=== PATIENT | male | born 1985 | race Caucasian/White ===

== ENCOUNTER 2019-04-01 04:02 | Emergency (ER) | payer MEDICAID ==
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
== END 2019-04-01 04:18 | disposition left against medical advice (07) ==
LOC: ER 04:08
DX: Z53.21 Procedure and treatment not carried out due to patient leaving prior to being seen by health care provider (principal)

== ENCOUNTER 2019-10-25 18:42 | Inpatient (IN) | payer MEDICAID ==
[~2019-10-25] VITALS: Ht 182.9 cm; Wt 91.2 kg
[2019-10-25] MEDS ORDERED: ALBUTEROL SULFATE 8 GM HFA.AER.AD IH STA (18:53)
[2019-10-25] MEDS ORDERED: methylPREDNISolone SOD SUCC 125 MG/2 ML VIAL IV ONE (19:00)
[2019-10-25] MEDS ORDERED: MAGNESIUM SULFATE/D5W 200 ML ONE (19:12)
[2019-10-25] MEDS ORDERED: methylPREDNISolone SOD SUCC 125 MG/2 ML VIAL ONE (19:12)
[2019-10-25] MEDS: MAGNESIUM SULFATE/D5W 100 ML IV SCH ×2 (19:30→20:23)
[2019-10-25 19:43] LABS: CREATININE 1.1 mg/dL (0.6-1.3); POTASSIUM 4.3 mmol/L (3.5-5.1)
[2019-10-25 19:55] LABS: BILIRUBIN,TOTAL 0.4 mg/dL (0.2-1.0); TOTAL PROTEIN, SERUM 8.6 g/dL (6.4-8.2)
[2019-10-25 20:02] LABS: BASOPHILS # (AUTO) 0.1 K/uL (0.0-8.0); BASOPHILS % (AUTO) 0.4 % (0.0-2.0); EOSINOPHILS # (AUTO) 0.9 K/uL (0.0-0.7); EOSINOPHILS % (AUTO) 8.4 % (0.0-7.0); HEMATOCRIT 40.3 % (36.7-47.1); HEMOGLOBIN 13.2 g/dL (12.5-16.3); LYMPHOCYTES # (AUTO) 2.9 K/uL (20.0-40.0); LYMPHOCYTES % (AUTO) 25.5 % (20.5-51.5); MEAN CORPUSCULAR HEMOGLOBIN 27.6 uug (23.8-33.4); MEAN CORPUSCULAR HGB CONC 33 g/dL (32.5-36.3); MEAN CORPUSCULAR VOLUME 84.6 fL (73.0-96.2); MONOCYTES # (AUTO) 0.9 K/uL (2.0-10.0); MONOCYTES % (AUTO) 8.3 % (0.0-11.0); NEUTROPHILS # (AUTO) 6.5 K/uL (1.8-8.9); NEUTROPHILS % (AUTO) 57.4 % (38.5-71.5); PLATELET COUNT (AUTO) 271 K/uL (152-348); RED BLOOD CELL COUNT(AUTO) 4.77 MIL/uL (4.06-5.63); WHITE BLOOD COUNT (AUTO) 11.3 K/uL (3.6-10.2)
[2019-10-25] MEDS ORDERED: levoFLOXacin 750 MG/D5W 150 ML PIGGYBACK IV ONE (20:45)
--- NOTE | 2019-10-25 20:49 | NUR ---
Paged Epic panel. Waiting for Dr Howe to call back Epic panel [address].
--- NOTE | 2019-10-25 20:53 | NUR ---
DR BARROS CALLED BACK SPOKE WITH ER DR SELLERS ACCEPTED PATIENT TELE.
--- NOTE | 2019-10-25 20:53 | NUR ---
Dr España speaking with Dr Howe.
[2019-10-25] MEDS ORDERED: levoFLOXacin 750MG/D5W 150 ML IV ONE (20:57)
[2019-10-25] MEDS ORDERED: ACETAMINOPHEN 325 MG TABLET PO PRN (21:00)
[2019-10-25] MEDS ORDERED: ALBUTEROL SULFATE 8 GM HFA.AER.AD IH PRN (21:00)
[2019-10-25] MEDS ORDERED: ONDANSETRON 4 MG/2 ML VIAL IV PRN (21:00)
[2019-10-25] MEDS ORDERED: hydrALAZINE HCL 25 MG TABLET PO PRN (21:15)
[2019-10-25 22:00] VITALS: BP 131/84
--- NOTE | 2019-10-25 22:20 | NUR ---
Pt. admitted to TELE, under care of Dr. BARROS Belongs List completed
[2019-10-25] MEDS: methylPREDNISolone SOD SUCC 40 MG/ML VIAL IV SCH (22:38)
[2019-10-25] MEDS: HYDROCODONE/APAP 5-325MG TABLET PO PRN (22:53)
[2019-10-25] MEDS: IV 1/2NS 1000 ML 1,000 ML IV PRN (22:54)
--- NOTE | 2019-10-25 23:17 | NUR ---
Received patient from ER. A/Ox4 Dx: PNA. On droplet and contact precaution for r/o COVID. Sinus Rhythm in the 90s on the monitor. Complains of some chest tightness/SOB. 92% on room air, placed patient on 2L NC saturating at 96%, stated feels better and requested pain medication. Administered PRN [place]. Started IVF on the left AC and administered Solu-medrol. Patient oriented to unit and room. Updated friend who is patients emergency contact in front of patient and answered any questions they had. Safety measures initiated. Bed is low and locked, call light within reach. Will continue to monitor.
[2019-10-26] VITALS: BP 130/74
[2019-10-26 04:00] VITALS: BP 125/83
[2019-10-26 06:18] LABS: BASOPHILS % (AUTO) 0.1 % (0.0-2.0); HEMATOCRIT 41.7 % (36.7-47.1); HEMOGLOBIN 13.6 g/dL (12.5-16.3); LYMPHOCYTES # (AUTO) 0.8 K/uL (20.0-40.0); LYMPHOCYTES % (AUTO) 12.7 % (20.5-51.5); MEAN CORPUSCULAR HEMOGLOBIN 27.8 uug (23.8-33.4); MEAN CORPUSCULAR HGB CONC 33 g/dL (32.5-36.3); MEAN CORPUSCULAR VOLUME 85.2 fL (73.0-96.2); MONOCYTES % (AUTO) 0.4 % (0.0-11.0); NEUTROPHILS # (AUTO) 5.3 K/uL (1.8-8.9); NEUTROPHILS % (AUTO) 86.8 % (38.5-71.5); PLATELET COUNT (AUTO) 295 K/uL (152-348); WHITE BLOOD COUNT (AUTO) 6.1 K/uL (3.6-10.2)
[2019-10-26] MEDS: methylPREDNISolone SOD SUCC 40 MG/ML VIAL IV SCH ×2 (06:25→13:34)
[2019-10-26 06:40] LABS: BILIRUBIN,TOTAL 0.4 mg/dL (0.2-1.0); MAGNESIUM 1.9 mg/dL (1.8-2.4); PHOSPHOROUS 4.6 mg/dL (2.5-4.9); POTASSIUM 4.9 mmol/L (3.5-5.1); TOTAL PROTEIN, SERUM 8.7 g/dL (6.4-8.2)
--- NOTE | 2019-10-26 06:43 | NUR ---
Patient slept well, stated breathing feels better. No distress noted. IVF running on the left AC, no s/s of infection or infiltration. Medication given as ordered. SR on the monitor. will endorse to next shift.
[2019-10-26] MEDS ORDERED: PANTOPRAZOLE SODIUM 40 MG TABLET.DR PO SCH (07:00)
[2019-10-26] MEDS: HYDROCODONE/APAP 5-325MG TABLET PO PRN ×2 (11:01→15:22)
[2019-10-26 11:46] VITALS: BP 137/80
[2019-10-26] MEDS: IV 1/2NS 1000 ML 1,000 ML IV PRN (13:44)
[2019-10-26 16:00] VITALS: BP 140/68
--- NOTE | 2019-10-26 18:22 | NUR ---
EOS note: No significant acute changes during this shift. Pt. remain A/Ox4, verbally responsive and able to make his needs know. All due medications administered as ordered and tolerated well. In no distress, denies SOB or CP. Noted pt. with intermittent non-productive cough. Pt. c/o low back pain, NORCO given 2x and effective. Skin care rendered. PIV patent and intact. Safety measures in place. Call light and all frequently used items within pt. reach. Will endorse to oncoming shift accordingly.
[2019-10-26 20:00] VITALS: BP 112/64
[2019-10-26] MEDS ORDERED: methylPREDNISolone SOD SUCC 40 MG/ML VIAL IV SCH (21:00)
[2019-10-26] MEDS ORDERED: MORPHINE SULFATE 2 MG/1 ML DISP.SYRIN IV PRN (21:15)
[2019-10-26] MEDS ORDERED: LORAZEPAM 2 MG/1 ML VIAL IV PRN (21:15)
[2019-10-27] VITALS: BP 123/65
[2019-10-27] MEDS: HYDROCODONE/APAP 5-325MG TABLET PO PRN (00:38)
--- NOTE | 2019-10-27 00:42 | NUR ---
Patient asked this nurse how long it takes for the morphine to work and this nurse explained that it takes approximately 20 -30 minutes for IV morphine to assist with pain relief. Patient told this nurse that it isn't working because he is still awake and wants another 'shot of morphine.' This nurse explained to patient that it is too soon for next morphine but he does have norco prescribed by his MD. Patient stated to this nurse that norco won't put him to sleep and asked if he could go to his car to get something that will help him sleep. This nurse advised patient that he cannot leave to get something that is not prescribed by his doctor. Patient then told this nurse to remove his IV because he wants to leave. This nurse explained that he would have to fill out AMA paperwork but he would need someone to come and pick him up. Patient then told this nurse he would take the norco but it wouldn't help him sleep. This nurse provided the patient with prescribed norco and will continue to monitor and assess.
--- NOTE | 2019-10-27 01:45 | NUR ---
Patient requesting to leave because he is not getting pain relief from the prescribed medications. Patient is alert and oriented x4 and signed paperwork to leave against medical advice. All belongings checked against belongings list and are accounted for. Patient walked to security desk by this nurse and left via front door.
[2019-10-27] MEDS ORDERED: PANTOPRAZOLE SODIUM 40 MG TABLET.DR PO SCH (09:00)
== END 2019-10-27 01:54 | disposition left against medical advice (07) | DRG 139 ==
LOC: ER 18:44 → TELE3 21:56
PROVIDERS: ADMIT Internal Medicine; ATTEND Internal Medicine
DX: J15.9 Unspecified bacterial pneumonia (principal); J96.01 Acute respiratory failure with hypoxia; F17.210 Nicotine dependence, cigarettes, uncomplicated; J20.9 Acute bronchitis, unspecified; Z59.0 Homelessness; F11.23 Opioid dependence with withdrawal; F15.10 Other stimulant abuse, uncomplicated
CPT/HCPCS: 36415; 70030-TC; 71045; 83605; 83615; 83735; 84100; 85025; 85730; 87040; 93005; G0378; J1956; J2270; J2920; J2930; J3475; J3490; J3535; U0003-CS

== ENCOUNTER 2019-10-30 21:43 | Emergency (ER) | payer SELFPAY | END 2019-10-30 21:51 | disposition left against medical advice (07) | LOC: ER 21:45 | DX: Z75.3 Unavailability and inaccessibility of health-care facilities (principal) ==

== ENCOUNTER 2019-11-20 12:18 | Emergency (ER) | payer MEDICAID ==
[~2019-11-20] VITALS: Ht 182.9 cm; Wt 90.7 kg
--- NOTE | 2019-11-20 12:43 | NUR ---
PT IS IN ROOM #1B. DR ECHOLS EVALUATED THE PT.
[2019-11-20] MEDS ORDERED: ALBUTEROL SULFATE 2.5 MG/3 ML NEBU NEB ONE ×2 (12:45→13:00)
[2019-11-20] MEDS ORDERED: ALBUTEROL SULFATE 2.5 MG/3 ML NEBU ONE ×2 (12:58→13:09)
--- NOTE | 2019-11-20 14:05 | NUR ---
PT WAS D/C'd TO HOME. D/C INSTRUCTIONS GIVEN TO THE PT BY DR ECHOLS.
[2019-11-20 14:06] VITALS: BP 132/74
== END 2019-11-20 14:11 | disposition home or self-care (01) ==
LOC: ER 12:20
DX: J44.1 Chronic obstructive pulmonary disease with (acute) exacerbation (principal); Z59.0 Homelessness; Z87.01 Personal history of pneumonia (recurrent); R05 Cough; Z20.828 Contact with and (suspected) exposure to other viral communicable diseases
CPT/HCPCS: 71045; 94644; 99285; U0003; A4663

== ENCOUNTER 2019-12-02 03:52 | Emergency (ER) | payer MEDICAID, OTHER ==
[~2019-12-02] VITALS: Ht 188 cm; Wt 90.7 kg
--- NOTE | 2019-12-02 03:58 | NUR ---
Dr. sEpaña at bedside for MSE.
--- NOTE | 2019-12-02 04:00 | NUR ---
Patient arrive via [facility] [id number] with [employer], in custody. Pt has c/o anxiety .
[2019-12-02] MEDS ORDERED: LORAZEPAM 1 MG TABLET ONE (04:07)
[2019-12-02] MEDS ORDERED: LORAZEPAM 0.5 MG TABLET PO ONE (04:15)
--- NOTE | 2019-12-02 04:22 | NUR ---
Patient discharged to [facility], Officer # [id number]. Written and verbal after care instructions given. Patient and [employer] verbalizes understanding of instructions.
[2019-12-02 04:24] VITALS: BP 130/68
== END 2019-12-02 04:22 ==
LOC: ER 03:57
DX: F45.8 Other somatoform disorders (principal); Z59.0 Homelessness; F41.9 Anxiety disorder, unspecified; Z87.01 Personal history of pneumonia (recurrent); Z87.898 Personal history of other specified conditions; F17.200 Nicotine dependence, unspecified, uncomplicated; F15.10 Other stimulant abuse, uncomplicated
CPT/HCPCS: 71045; A4663

== ENCOUNTER 2020-01-03 23:19 | Emergency (ER) | payer MEDICAID, OTHER ==
[~2020-01-03] VITALS: Ht 182.9 cm; Wt 90.7 kg
[2020-01-03] MEDS: ALBUTEROL SULFATE 2.5 MG/3 ML NEBU NEB ONE (23:50)
[2020-01-03] MEDS: IPRATROPIUM BROMIDE 0.5 MG/2.5 ML NEBU NEB ONE (23:50)
[2020-01-03] MEDS: predniSONE 20 MG TABLET PO ONE (23:55)
[2020-01-03] MEDS ORDERED: predniSONE 20 MG TABLET ONE (23:55)
[2020-01-04] MEDS ORDERED: ALBUTEROL SULFATE 2.5 MG/3 ML NEBU ONE
[2020-01-04] MEDS ORDERED: IPRATROPIUM BROMIDE 0.5 MG/2.5 ML NEBU ONE (00:01)
[2020-01-04 00:32] VITALS: BP 128/74
--- NOTE | 2020-01-04 00:32 | NUR ---
Patient given written and verbal discharge instructions. Patient verbalizes understanding of instructions. Patient is ambulatory with steady gait. Refuses offer of intermediate placement. Patient given list of available shelters in surrounding area.
== END 2020-01-04 00:33 | disposition home or self-care (01) ==
LOC: ER 23:28
DX: J45.901 Unspecified asthma with (acute) exacerbation (principal); Z59.0 Homelessness; F17.200 Nicotine dependence, unspecified, uncomplicated; F11.10 Opioid abuse, uncomplicated; F15.10 Other stimulant abuse, uncomplicated; Z87.01 Personal history of pneumonia (recurrent)
CPT/HCPCS: 94640; 99283; J7512; A4663; J3590

== ENCOUNTER 2020-01-20 06:34 | Emergency (ER) | payer MEDICAID ==
[~2020-01-20] VITALS: Ht 182.9 cm; Wt 90.7 kg
[2020-01-20] MEDS ORDERED: predniSONE 10 MG TABLET ONE (06:52)
[2020-01-20] MEDS ORDERED: predniSONE 50 MG TABLET ONE (06:52)
[2020-01-20] MEDS ORDERED: predniSONE 20 MG TABLET PO ONE (07:00)
[2020-01-20] MEDS ORDERED: IPRATROPIUM BROMIDE 0.5 MG/2.5 ML NEBU NEB ONE (07:00)
[2020-01-20] MEDS ORDERED: ALBUTEROL SULFATE 2.5 MG/3 ML NEBU NEB ONE (07:00)
[2020-01-20] MEDS ORDERED: IPRATROPIUM BROMIDE 0.5 MG/2.5 ML NEBU ONE (07:02)
[2020-01-20] MEDS ORDERED: ALBUTEROL SULFATE 2.5 MG/3 ML NEBU ONE (07:02)
--- NOTE | 2020-01-20 08:57 | NUR ---
Patient discharged to home in stable condition. Written and verbal after care instructions given. Patient verbalizes understanding of instructions. Stressed follow up or return to ER for worsening s/s.
[2020-01-20 08:58] VITALS: BP 110/67
== END 2020-01-20 08:59 | disposition home or self-care (01) ==
LOC: ER 06:37
DX: J45.901 Unspecified asthma with (acute) exacerbation (principal); Z59.0 Homelessness; F17.200 Nicotine dependence, unspecified, uncomplicated; Z87.01 Personal history of pneumonia (recurrent)
CPT/HCPCS: 94640; 99283; J7512 ×2; A4663; J3590